=== PATIENT | male | born 1950 | race Two or more races ===

== ENCOUNTER 2023-01-28 14:38 | Emergency (ER) | payer OTHER ==
[~2023-01-28] VITALS: Ht 188 cm; Wt 88.0 kg
[2023-01-28] MEDS ORDERED: PLAVIX75 MG PO (15:07)
[2023-01-28] MEDS ORDERED: VYTORIN 10-201 EACH PO (15:08)
[2023-01-28] MEDS ORDERED: HYDROCHLOROTH12.5 MG PO (15:08)
[2023-01-28] MEDS ORDERED: CHILDREN'S ASPI81 MG PO (15:08)
[2023-01-28 16:42] LABS: HEMATOCRIT 43.6 % (39.0-48.0); HEMOGLOBIN 15.4 g/dL (13-16.00); MEAN CELL VOLUME 95.9 fL (80.0-100.00); MEAN CORPUSCULAR HGB CONC 35.4 g/dl (32.0-36.0); PLATELET COUNT 238 K/uL (150-450); RED BLOOD COUNT 4.54 M/uL (4.00-6.00); RED CELL DISTRIBUTION WIDTH 14.9 % (11.5-14.5)
[2023-01-28 16:54] LABS: PH,URINE 5.5 (5.0-8.0); URINE APPEARANCE Clear; URINE BILIRRUBIN Negative (NEGATIVE); URINE BLOOD Negative; URINE COLOR Yellow; URINE LEUKOCYTE Small; URINE NITRATE Negative; URINE PROTEIN Negative (NEGATIVE)
[2023-01-28 16:57] LABS: URINE BACTERIA 7.5 uL (0.0-1933); URINE EPITHELIAL CELLS 14.9 uL (0.0-38.8); URINE WBC 57.4 uL (0.0-23.2)
[2023-01-28 16:59] LABS: CREATININE SERUM 2.21 mg/dL (0.70-1.30); GFR 29.17; POTASSIUM 3.34 mEq/L (3.5-5.1)
[2023-01-28 17:12] LABS: URINE GLUCOSE >=1000 MG/DL (NEGATIVE); URINE RBC 1.7 uL (0.0-20.8)
== END 2023-01-28 17:52 | disposition home or self-care (01) ==
LOC: ER 14:39
PROVIDERS: General Practice
DX: N39.0 Urinary tract infection, site not specified (principal)